=== PATIENT | male | born 1985 | race Caucasian/White ===

== ENCOUNTER 2017-02-14 09:00 | Emergency (ER) | payer SELFPAY ==
[~2017-02-14] VITALS: Ht 170.2 cm; Wt 119.5 kg
[~2017-02-14 09:00] MED LIST: NOHOMEMEDS
[2017-02-14] MEDS ORDERED: BENADRYL25 MG PO (10:26)
[2017-02-14] MEDS ORDERED: PEPCID20 MG PO (10:26)
[2017-02-14 10:41] VITALS: BP 133/89
== END 2017-02-14 10:44 | disposition home or self-care (01) ==
LOC: EME 09:00
DX: H57.8 Other specified disorders of eye and adnexa (principal); Z88.0 Allergy status to penicillin
CPT/HCPCS: 99281; 99283

== ENCOUNTER 2017-03-07 10:55 | Inpatient (IN) | payer OTHER ==
[~2017-03-07] VITALS: Ht 170.2 cm; Wt 115.1 kg
[~2017-03-07 10:55] MED LIST changes: +BENADRYL25 MG PO; +PEPCID20 MG PO
[2017-03-07 12:17] LABS: ADD MIUA? NO; BILIRUBIN NEGATIVE; BLOOD NEGATIVE; COLOR YELLOW ((YELLOW)); GLUCOSE (STRIP) NEGATIVE; KETONES NEGATIVE; LEUKOCYTES NEGATIVE; NITRITE NEGATIVE; PROTEIN (STRIP) 30; SPECIFIC GRAVITY 1.032 (1.000-1.030); UCUL ADDED? NO; UROBILINOGEN 0.2 MG/DL (0.2-1.0)
[2017-03-07 12:29] LABS: AMPHETAMINE NEGATIVE (500 ng/mL); BARBITURATES NEGATIVE (200 ng/mL); BENZODIAZEPINES NEGATIVE (150 ng/mL); COCAINE NEGATIVE (150 ng/mL); INTERNAL CONTROLS VALID? YES; METHADONE NEGATIVE (200 ng/mL); METHAMPHETAMINE NEGATIVE (500 ng/mL); OPIATES (MORPHINE) NEGATIVE (100 ng/mL); OXYCODONE NEGATIVE (100 ng/mL); PHENCYCLIDINE NEGATIVE (25 ng/mL); PROPOXYPHENE NEGATIVE (300 ng/mL); THC CANNABINOIDS NEGATIVE (50 ng/mL); TRICYCLIC ANTIDEPRESSANTS NEGATIVE (300 ng/mL)
[2017-03-07 12:45] LABS: BASOPHIL COUNT 0.1 K/uL (0-0.1); EOSINOPHIL (%) 2.6 % (0-5); EOSINOPHIL COUNT 0.3 K/uL (0-0.3); HEMATOCRIT 47.3 % (38.0-50.0); IMMATURE GRANULOCYTE (%) 0.5 % (0.0-0.7); IMMATURE GRANULOCYTE COUNT 0.1 K/uL; INSTRUMENT ABS NEUTROPHIL CT 8.4 K/uL; LYMPHOCYTE COUNT 1.4 K/uL (1.0-2.8); MCH 29.2 PG (29.0-34.0); MCHC 33.4 G/DL (30.0-36.0); MCV 87.4 FL (86-99); MONOCYTE (%) 5.3 % (3-12); MONOCYTE COUNT 0.6 K/uL (0-0.8); NEUTROPHIL (%) 78.2 % (45-76); NEUTROPHIL COUNT 8.4 K/uL (1.8-6.4); PLATELET COUNT 237 K/uL (156-360); RBC DIS.WIDTH-CV 12.4 % (11.8-14.6); RBC DIS.WIDTH-SD 39.8 % (39-53); RED BLOOD COUNT 5.41 M/uL (4.00-5.50); WHITE BLOOD COUNT 10.8 K/uL (4.1-10.2)
[2017-03-07 12:55] LABS: CHLORIDE 107 mEq/L (99-109); SODIUM 139 mEq/L (136-147)
[2017-03-07 12:56] LABS: GLUCOSE 102 mg/dL (70-99)
[2017-03-07 12:58] LABS: ANION GAP 10 MEQ/L (2-14)
[2017-03-07 13:00] LABS: GFR ESTIMATE (CALCULATED) > 59 mL/min/; SERUM ETHYL ALCOHOL < 10 mg/dL
[2017-03-07 13:01] LABS: UREA NITROGEN (BUN) 15 mg/dL (9-23)
[2017-03-07 15:34] VITALS: BP 137/83
[2017-03-08 07:36] VITALS: BP 120/67
[2017-03-08 15:29] VITALS: BP 118/73
[2017-03-09 07:58] VITALS: BP 143/68
[2017-03-09 15:43] VITALS: BP 129/65
[2017-03-10 07:52] VITALS: BP 125/58
[2017-03-10 15:30] VITALS: BP 127/69
[2017-03-11 08:54] VITALS: BP 134/68
[2017-03-11 15:56] VITALS: BP 134/71
[2017-03-12 07:52] VITALS: BP 133/71
[2017-03-12 15:27] VITALS: BP 137/77
[2017-03-13 07:45] VITALS: BP 113/58
[2017-03-13 15:39] VITALS: BP 139/79
[2017-03-14 07:53] VITALS: BP 137/62
[2017-03-14 15:08] VITALS: BP 144/75
[2017-03-15 07:46] VITALS: BP 137/79
[2017-03-15 15:54] VITALS: BP 145/90
[2017-03-16 07:39] VITALS: BP 133/77
[2017-03-16 15:36] VITALS: BP 141/85
[2017-03-17 07:34] VITALS: BP 128/80
[2017-03-17] MEDS ORDERED: BUPROPION XL300 MG PO (09:11)
[2017-03-17] MEDS ORDERED: EFFEXOR XR75 MG PO (09:11)
[2017-03-17] MEDS ORDERED: EFFEXOR XR150 MG PO (09:11)
[2017-03-17] MEDS ORDERED: ARIPIPRAZOLE10 MG PO (09:11)
== END 2017-03-17 13:53 | DRG 876 ==
LOC: EME 10:55 → 1WEST 13:07 → EDOF 13:07 → 1WEST 13:07 → ENRESERV 15:33 → 1WEST 03-17 13:53
PROVIDERS: Emergency Medicine
PROC: 0JQH0ZZ Repair Left Lower Arm Subcutaneous Tissue and Fascia, Open Approach (ICD-10-PCS; principal; 2017-03-07)
DX: F33.2 Major depressive disorder, recurrent severe without psychotic features (principal); R45.851 Suicidal ideations; F43.25 Adjustment disorder with mixed disturbance of emotions and conduct; Z59.0 Homelessness; S61.512A Laceration without foreign body of left wrist, initial encounter; X78.8XXA Intentional self-harm by other sharp object, initial encounter; Y93.89 Activity, other specified; Y92.009 Unspecified place in unspecified non-institutional (private) residence as the place of occurrence of the external cause; Z56.0 Unemployment, unspecified; E66.9 Obesity, unspecified; Z68.39 Body mass index [BMI] 39.0-39.9, adult; Z91.5 Personal history of self-harm; Z88.0 Allergy status to penicillin; F41.9 Anxiety disorder, unspecified; Z88.6 Allergy status to analgesic agent; G47.9 Sleep disorder, unspecified; Z23 Encounter for immunization
CPT/HCPCS: 80048; 81003; 85025; 90686; 90837; 93005; 97150 GO; 97165 GO; 99281; 99285; G0480; Q0177